=== PATIENT | female | born 1960 | race Caucasian/White ===

== ENCOUNTER 2020-06-14 14:33 | Emergency (ER) | payer OTHER, MEDICARE, SELFPAY ==
--- NOTE | ~2020-06-14 | XR_ITS ---
EXAMINATION: XR chest 2V 06/14/2020 16:48 INDICATION: Syncope. Hypertension. PROCEDURE: 2 view chest COMPARISON: 07/14/2015 FINDINGS: The lungs are clear. The cardiomediastinal silhouette is within normal limits. There are no pleural effusions. There is no pneumothorax suspected. IMPRESSION: 1: NO ACUTE CARDIOPULMONARY DISEASE. Reviewed, dictated and finalized at location A. [facility] [employer]
[2020-06-14 14:34] VITALS: BP 116/76; PULSE 70; RESP 18; TEMP 36.7; O2SAT 100
--- NOTE | 2020-06-14 14:56 | ECG_ITS ---
Measurements Intervals [place] Rate: 73 P: 30 SC: 158 QRS: 11 QRSD: 87 T: 51 QT: 384 QTc: 426 Interpretive Statements SINUS RHYTHM LOW QRS VOLTAGE IN PRECORDIAL LEADS BASELINE ARTIFACT- I, II, III, AVR, AVL, AVF, V1-V6 BORDERLINE ECG Electronically Signed On 06-14-2020 15:25:57 [employer]NAGER by Agapito Weller D.O.
[2020-06-14 14:58] VITALS: BP 125/81; PULSE 72
[2020-06-14 14:59] VITALS: BP 139/82; PULSE 74
[2020-06-14 15:01] VITALS: BP 136/87; PULSE 82
[2020-06-14 15:12] LABS: Basophils Percent Auto 0.6 % (0.2-1.2); Eosinophils Absolute Auto 0.1 K/mm3 (0-0.3); Eosinophils Percent Auto 1.6 % (0-4.4); Hematocrit 30.7 % (37.0-47.0); Hemoglobin 9.6 g/dL (12.0-15.0); Immature Granulocyte Absolute 0.03 K/mm3 (0.00-0.031); Immature Granulocyte Percent A 0.5 % (0-0.5); Lymphocytes Absolute Auto 1.28 K/mm3 (0.9-3.2); Lymphocytes Percent Auto 20.7 % (18.3-44.2); Mean Corpuscular HGB Conc 31.3 g/dl (32-36); Mean Corpuscular Hemoglobin 28.6 pg (26-34); Mean Corpuscular Volume 91.4 fl (80-100); Monocytes Absolute Auto 0.5 K/mm3 (0.1-0.6); Monocytes Percent Auto 7.8 % (2.6-8.5); Neutrophils Absolute Auto 4.3 K/mm3 (1.3-6.7); Neutrophils Percent Auto 68.8 % (45.5-73.1); Platelet Count Result 190 k/mm3 (150-375); Red Blood Count 3.36 M/mm3 (4.2-5.4); Red Cell Distribution Width 12.8 % (11.5-14.5); White Blood Count 6.2 K/mm3 (4.5-10.0)
[2020-06-14 15:24] LABS: Anion Gap 15 mmol/L (8-16); Blood Urea Nitrogen 81 mg/dL (7-17); Calcium 9.5 mg/dL (8.4-10.2); Carbon Dioxide 18 mmol/L (22-30); Chloride 107 mmol/L (98-107); Estimated CRCL calculation 8 ml/min; Estimated Glomerular Filt Rate 5; Glucose 128 mg/dL (65-105); Potassium 4.7 mmol/L (3.4-5.0); Sodium 140 mmol/L (137-145)
--- NOTE | 2020-06-14 16:12 | ED.SYNCOPE ---
HPI - Syncope General Chief Complaint: Syncope Stated Complaint: syncopal Time Seen by Provider: 06/14/20 16:12 Source: patient Mode of arrival: EMS Limitations: no limitations History of Present Illness HPI narrative: Patient is a 6-year-old female with a history of polycystic kidney disease who presents for evaluation of syncopal event. Patient was learning how to do peritoneal dialysis at the dialysis center, when they began to push the fluid back into her abdomen, patient became lightheaded, mildly dizzy and then passed out. Patient denied any chest pain or palpitations with the symptoms. She awakened and returned to baseline shortly after. No seizure-like activity noted by staff. No urinary incontinence. Patient states she currently feels well and has no complaints. She denies any current chest pain, shortness of breath. No pleuritic pain. No history of DVT. No recent surgeries, patient is not immobile. She states that she did have her peritoneal dialysis catheter placed 1 month ago without complication. Patient denies cough or hemoptysis. She denies headache, vision changes, nausea or vomiting. She denies any weakness or numbness. Related Data Allergies Allergy/AdvReac Type Severity Reaction Status Date / Time No Known Allergies Allergy Unverified 11/22/15 14:45 Review of Systems Review of Systems: Narrative: CONSTITUTIONAL: Denies fever, chills, or sweats. EYES: Denies visual changes, redness, or discharge. ENT: Denies rhinorrhea, congestion, sore throat, or otalgia. CARDIOVASCULAR: Denies chest pain, palpitations, or edema. RESPIRATORY: Denies cough or dyspnea. GASTROINTESTINAL: Denies abdominal pain, nausea, vomiting, or diarrhea. GENITOURINARY: Denies dysuria or hematuria. SKIN: Denies rash or itching. MUSCULOSKELETAL: Denies back pain, joint pain, or myalgia. NEUROLOGIC: Denies headache, numbness, or weakness. [facility] Past Medical History Medical History Coronary artery disease Hypertension Peritoneal dialysis catheter in place Polycystic kidney disease Surgical History Surgical History (Updated 06/14/20 @ 16:34 by Diana Beavers MD) H/O cardiac catheterization Social History Social History (Updated 06/14/20 @ 16:35 by Diana Beavers MD) Smoking status: Former smoker Alcohol intake: never Substance use: never Living arrangements: with family Gender identity (if verbalized by the patient): Female Exam Narrative: Exam Narrative: GENERAL: Awake, alert, conversant HEAD: Normocephalic, atraumatic. EYES: PERRLA and EOMI. ENT: Nares clear, no rhinorrhea or epistaxis. Mucous membranes moist. NECK: Supple. CHEST: No respiratory distress, breathing even and non labored HEART: Regular rate, sinus rhythm ABDOMEN: Obese, Non distended, non tender, peritoneal dialysis catheter, left lower abdomen EXTREMITIES: Normal range of motion. No edema. SKIN: Warm, dry, no rash. NEURO:No focal deficits. Alert and oriented x3 Course Vital Signs Vital signs: Vital Signs Temperature 36.7 C 06/14/20 14:34 Pulse Rate 70 06/14/20 14:34 Respiratory Rate 18 06/14/20 14:34 Blood Pressure 116/76 06/14/20 14:34 Pulse Oximetry 100 06/14/20 14:34 Temperature 36.7 C 06/14/20 14:34 Pulse Rate 71 06/14/20 16:24 Respiratory Rate 12 06/14/20 16:24 Blood Pressure 123/71 06/14/20 16:24 Pulse Oximetry 100 06/14/20 16:24 MDM - Syncope MDM Narrative Medical decision making narrative: The patient was evaluated in the emergency department for syncopal event. The patient's episode of syncope is not felt to be due to high risk cause. Syncopal episode was brief and patient is now back to normal mental status. EKG was reviewed and without high risk changes for syncope. There are no signs of prolonged QT or Brugada syndrome. The patient is ambulatory with a steady gait and is felt to be reasonable candidate for further evaluation w
[2020-06-14 16:24] VITALS: BP 123/71; PULSE 71; RESP 12; O2SAT 100
[2020-06-14 17:31] VITALS: BP 137/85; PULSE 74; RESP 18; O2SAT 99
== END 2020-06-14 17:32 | disposition home or self-care (01) ==
PROVIDERS: Emergency Medicine; Emergency Provider Emergency Medicine; PCP Family Medicine
DX: R55 Syncope and collapse (principal); I25.10 Atherosclerotic heart disease of native coronary artery without angina pectoris; I10 Essential (primary) hypertension; Q61.3 Polycystic kidney, unspecified; Z87.891 Personal history of nicotine dependence; R94.31 Abnormal electrocardiogram [ECG] [EKG]; Z99.2 Dependence on renal dialysis
CPT/HCPCS: 36415; 71046; 80048; 85025; 93005; 99284

== ENCOUNTER 2020-12-13 10:25 | Emergency (ER) | payer OTHER, MEDICARE, SELFPAY ==
[2020-12-13] VITALS (37 sets, daily range): BP systolic 92–119; BP diastolic 56–88; PULSE 59–84; RESP 10–20; TEMP 36.3; O2SAT 96–100
--- NOTE | ~2020-12-13 | CT_ITS ---
EXAMINATION: CT brain wo con INDICATION: Transient alteration of awareness COMPARISON: None TECHNIQUE: Standard unenhanced head CT. The dose-length product (DLP) was 605.33 mGy-cm. The mA was a djusted according to patient size. Iterative reconstruction technique was employed. FINDINGS: There is no intracranial hemorrhage, acute infarction, or abnormal mass lesion. The ventric les are normal. There is no abnormal mass effect or midline shift. The verduzco-white matter differentiat ion is normal. The basal cisterns are patent. The orbits are normal. The paranasal sinuses, mastoids and calvarium are normal. IMPRESSION: 1. No acute intracranial abnormality. Reviewed, dictated and finalized at location A.
--- NOTE | 2020-12-13 10:38 | ECG_ITS ---
Measurements Intervals [place] Rate: 69 P: 24 [place]: 162 QRS: -21 QRSD: 97 T: 28 QT: 410 QTc: 440 Interpretive Statements SINUS RHYTHM VOLTAGE CRITERIA FOR LVH CONSIDER INFERIOR INFARCT, AGE INDETERMINATE NONSPECIFIC ST & T-WAVE ABNORMALITY- HIGH LATERAL LEADS BASELINE ARTIFACT- II, III, AVR, AVF, V3-V6 ABNORMAL ECG Electronically Signed On 12-13-2020 12:26:21 CDT by Agapito Weller D.O.
[2020-12-13 10:48] LABS: Basophils Absolute Auto 0.1 K/mm3 (0.0-0.1); Basophils Percent Auto 0.9 % (0.2-1.2); Eosinophils Absolute Auto 0.1 K/mm3 (0-0.3); Eosinophils Percent Auto 2.1 % (0-4.4); Hematocrit 34.8 % (37.0-47.0); Hemoglobin 10.8 g/dL (12.0-15.0); Immature Granulocyte Absolute 0.03 K/mm3 (0.00-0.031); Immature Granulocyte Percent A 0.4 % (0-0.5); Lymphocytes Absolute Auto 2.22 K/mm3 (0.9-3.2); Lymphocytes Percent Auto 32.6 % (18.3-44.2); Mean Corpuscular Hemoglobin 29.3 pg (26-34); Mean Corpuscular Volume 94.3 fl (80-100); Mean Platelet Volume 9.9 fl (7.4-10.4); Monocytes Absolute Auto 0.6 K/mm3 (0.1-0.6); Monocytes Percent Auto 8.1 % (2.6-8.5); Neutrophils Absolute Auto 3.8 K/mm3 (1.3-6.7); Neutrophils Percent Auto 55.9 % (45.5-73.1); Platelet Count Result 194 k/mm3 (150-375); Red Blood Count 3.69 M/mm3 (4.2-5.4); Red Cell Distribution Width 13.8 % (11.5-14.5); White Blood Count 6.8 K/mm3 (4.5-10.0)
[2020-12-13 10:57] LABS: Anion Gap 16 mmol/L (8-16); Blood Urea Nitrogen 57 mg/dL (7-17); Calcium 9.2 mg/dL (8.4-10.2); Carbon Dioxide 17 mmol/L (22-30); Chloride 108 mmol/L (98-107); Estimated CRCL calculation 8 ml/min; Estimated Glomerular Filt Rate 5; Glucose 134 mg/dL (65-105); Potassium 3.9 mmol/L (3.4-5.0); Sodium 141 mmol/L (137-145)
--- NOTE | 2020-12-13 13:09 | ED.GENADULT ---
HPI - General Adult General Chief complaint: Syncope Stated complaint: Syncope Time Seen by Provider: 12/13/20 12:19 Source: patient History of Present Illness HPI narrative: Patient passed out for 1-2 minutes while sitting in ED here as a visitor. She states that she was feeling hot, dizzy and then woke up with severe nurses standing around here. There is no known alleviating or exacerbating factor. She currently feels fine. She denies any chest pain, SOB or any focal neurological problem. She was in sitting position when this happened and she did not fall out of chair. She states that she had a similar episode in the past and work up was negative. Related Data Home Medications Medication Instructions Recorded Confirmed amlodipine 12/13/20 cinacalcet mg PO 12/13/20 Allergies Allergy/AdvReac Type Severity Reaction Status Date / Time No Known Allergies Allergy Verified 12/13/20 10:43 Review of Systems Constitutional: Constitutional: Denies chills, Denies fever(s), Denies headache(s) and Denies weakness Eyes: Eyes: Denies blurry vision ENT: Denies headache(s) and Denies neck pain Cardiovascular: Cardiovascular: Denies chest pain and Denies dyspnea Respiratory: Respiratory: Denies cough and Denies dyspnea Gastrointestinal: Gastrointestinal: Denies abdominal pain, Denies diarrhea, Denies nausea and Denies vomiting Genitourinary: Genitourinary: Denies hematuria and Denies dysuria Musculoskeletal: Musculoskeletal: Denies back pain and Denies neck pain Neurologic: Reports syncope, Denies headache(s) and Denies weakness PMFSH Past Medical History Medical History Coronary artery disease Hypertension Peritoneal dialysis catheter in place Polycystic kidney disease Surgical History Surgical History H/O cardiac catheterization Social History Social History Smoking status: Former smoker Alcohol intake: never Substance use: never Gender identity (if verbalized by the patient): Female Exam Const: General: no acute distress and well developed Orientation/consciousness: oriented to person, oriented to place, oriented to time and patient oriented x3 HENMT: Head: normocephalic Ears: external ears normal General nose exam: Normal external nose present Eyes: General: appearance normal, both eyes and all related structures Conjunctivae: conjunctivae normal Neck: Neck: normal visual inspection and full ROM Chest: Chest palpation & inspection: normal inspection of the chest and no tenderness Resp: Effort & Inspection: normal respiratory effort Auscultation: clear to auscultation bilaterally Cardio: Rate: regular rate Rhythm: regular rhythm GI: GI Palp: No abdominal tenderness and Yes Soft to palpation Skin: General skin exam: normal color and turgor normal Neuro: General: oriented to person, oriented to place, oriented to time and patient oriented x3 Cranial nerves: Yes CN's II-XII intact bilaterally Cognition (Neuro): normal cognition Speech: normal speech Motor exam (neuro): 5/5 motor strength present throughout Sensory Exam: normal sensation Coordination: [id number] test normal and [id number] test normal Extrem: General: normal to inspection, full ROM and no pedal edema Psych: Appearance: grossly normal Mental Status: mental status grossly normal Affect: normal affect Course Reevaluation(s) Reevaluation #1: Rechecked. Patient feels well. She feels comfortable with being discharged. Date: 12/13/20 Time: 15:25 Vital Signs Vital signs: Vital Signs Temperature 36.3 C L 12/13/20 10:38 Pulse Rate 74 12/13/20 10:38 Respiratory Rate 18 12/13/20 10:38 Blood Pressure 119/88 12/13/20 10:38 Pulse Oximetry 97 12/13/20 10:38 Temperature 36.3 C L 12/13/20 10:38 Pulse Rate 64 12/13/20 15:16 Respiratory Rate
== END 2020-12-13 15:37 | disposition home or self-care (01) ==
PROVIDERS: Emergency Medicine; Emergency Provider Emergency Medicine; PCP Family Medicine
DX: I12.0 Hypertensive chronic kidney disease with stage 5 chronic kidney disease or end stage renal disease (principal); N18.6 End stage renal disease; R55 Syncope and collapse; I25.10 Atherosclerotic heart disease of native coronary artery without angina pectoris; Z99.2 Dependence on renal dialysis; Q61.3 Polycystic kidney, unspecified; Z87.891 Personal history of nicotine dependence; R94.31 Abnormal electrocardiogram [ECG] [EKG]
CPT/HCPCS: 36415; 70450; 80048; 85025; 93005; 99284